=== PATIENT | male | born 1940 | race Caucasian/White ===

== ENCOUNTER → 2021-04-15 | Outpatient (CLI) | payer MEDICARE ==
[2021-04-15 11:26] LABS: HEMOGLOBIN 12.3 gm/dl (14.0-17.5); RED BLOOD COUNT 4.44 M/UL (4.20-5.50); WHITE BLOOD COUNT 3.9 K/UL (4.5-11.0)
[2021-04-15 11:58] LABS: BUN/CREATININE RATIO 20 (0-10)
== END ==
LOC: LAB 10:51
PROVIDERS: Surgery
DX: K40.90 Unilateral inguinal hernia, without obstruction or gangrene, not specified as recurrent (principal); R91.8 Other nonspecific abnormal finding of lung field
CPT/HCPCS: 36415; 71046; 80048; 85025; 93005

== ENCOUNTER → 2021-05-03 | Outpatient (CLI) | payer MEDICARE | LOC: RT 15:04 | DX: K40.90 Unilateral inguinal hernia, without obstruction or gangrene, not specified as recurrent (principal); Z20.822 Contact with and (suspected) exposure to COVID-19 | CPT/HCPCS: 93005; U0003 ==

== ENCOUNTER → 2021-05-30 | Outpatient (CLI) | payer MEDICARE | LOC: RAD 11:41 | DX: R41.82 Altered mental status, unspecified (principal); R91.8 Other nonspecific abnormal finding of lung field | CPT/HCPCS: 71046 ==

== ENCOUNTER 2021-08-11 10:15 | Inpatient (IN) | payer MEDICARE, MEDICAID ==
[~2021-08-11] VITALS: Ht 182.9 cm; Wt 68.0 kg
[2021-08-11] MEDS ORDERED: MEGESTROL400 MG/11 PO (11:26)
[2021-08-11] MEDS ORDERED: MECLIZINE HCL25 MG PO (11:27)
[2021-08-11] MEDS ORDERED: FINASTERIDE5 MG PO (11:27)
[2021-08-11] MEDS ORDERED: METOPROLOL TART25 MG PO (11:27)
[2021-08-11] MEDS ORDERED: RESTORIL15 MG PO (11:27)
[2021-08-11] MEDS ORDERED: CARBIDOPA-LEVO1 EAC6 PO (11:28)
[2021-08-11] MEDS ORDERED: AMLODIPINE BES2.5 MG PO (11:28)
[2021-08-11 11:40] LABS: HEMOGLOBIN 11.7 gm/dl (14.0-17.5); RED BLOOD COUNT 4.19 M/UL (4.20-5.50); WHITE BLOOD COUNT 8.3 K/UL (4.5-11.0)
[2021-08-11 12:02] LABS: BUN/CREATININE RATIO 25 (0-10)
[2021-08-11] MEDS ORDERED: ASPIRIN EC81 MG PO (12:58)
[2021-08-11 20:45] LABS: HEMOGLOBIN 11.3 gm/dl (14.0-17.5); RED BLOOD COUNT 4.03 M/UL (4.20-5.50); WHITE BLOOD COUNT 8.4 K/UL (4.5-11.0)
[2021-08-11 21:05] LABS: BUN/CREATININE RATIO 29 (0-10)
[2021-08-12 05:01] LABS: HEMOGLOBIN 9.9 gm/dl (14.0-17.5); WHITE BLOOD COUNT 6.3 K/UL (4.5-11.0)
[2021-08-12 05:11] LABS: RED BLOOD COUNT 3.58 M/UL (4.20-5.50)
[2021-08-12 05:26] LABS: BUN/CREATININE RATIO 26 (0-10)
[2021-08-14 03:28] LABS: HEMOGLOBIN 10.3 gm/dl (14.0-17.5); RED BLOOD COUNT 3.7 M/UL (4.20-5.50)
[2021-08-14 03:57] LABS: BUN/CREATININE RATIO 23 (0-10)
[2021-08-15 02:56] LABS: HEMOGLOBIN 9.8 gm/dl (14.0-17.5); RED BLOOD COUNT 3.59 M/UL (4.20-5.50)
[2021-08-15 02:58] LABS: WHITE BLOOD COUNT 4.7 K/UL (4.5-11.0)
[2021-08-15 03:20] LABS: BUN/CREATININE RATIO 26 (0-10)
[2021-08-15] MEDS ORDERED: BRILINTA90 MG PO (14:43)
[2021-08-15] MEDS ORDERED: ISOSORBIDE MONO30 MG PO (14:46)
[2021-08-15] MEDS ORDERED: LIPITOR80 MG PO (14:50)
== END 2021-08-15 21:14 | DRG 247 ==
LOC: ER1 10:15 → CCU 11:17 → CDU 11:17 → CCU 11:38 → PROG CARE 08-13 11:21
PROVIDERS: Internal Medicine; Nurse Practitioner; ADMIT Internal Medicine Interventional Cardiology
PROC: 027034Z Dilation of Coronary Artery, One Artery with Drug-eluting Intraluminal Device, Percutaneous Approach (ICD-10-PCS; 2021-08-11)
PROC: 4A023N7 Measurement of Cardiac Sampling and Pressure, Left Heart, Percutaneous Approach (ICD-10-PCS; 2021-08-11)
PROC: B2111ZZ Fluoroscopy of Multiple Coronary Arteries using Low Osmolar Contrast (ICD-10-PCS; 2021-08-11)
PROC: B24BZZZ Ultrasonography of Heart with Aorta (ICD-10-PCS; principal; 2021-08-13)
DX: I21.09 ST elevation (STEMI) myocardial infarction involving other coronary artery of anterior wall (principal); G20 Parkinson's disease; I10 Essential (primary) hypertension; F02.80 Dementia in other diseases classified elsewhere, unspecified severity, without behavioral disturbance, psychotic disturbance, mood disturbance, and anxiety; Z20.822 Contact with and (suspected) exposure to COVID-19; E78.5 Hyperlipidemia, unspecified; I08.3 Combined rheumatic disorders of mitral, aortic and tricuspid valves; D50.9 Iron deficiency anemia, unspecified; G31.83 Neurocognitive disorder with Lewy bodies; G47.00 Insomnia, unspecified; Z79.01 Long term (current) use of anticoagulants; Z79.82 Long term (current) use of aspirin; Z82.49 Family history of ischemic heart disease and other diseases of the circulatory system; Z90.49 Acquired absence of other specified parts of digestive tract; Z98.42 Cataract extraction status, left eye; Z98.41 Cataract extraction status, right eye
CPT/HCPCS: ECHO; 0240U; 36415; 70450; 70551; 71045; 80048; 80053; 82550; 82553; 82607; 82746; 83540; 83550; 83605; 83735; 83874; 83880; 84439; 84443; 84484; 85025; 85027; 85347; 85610; 85730; 86140; 87040; 92610; 93005; 93306; 97162; 97530-GP-CQ; 99285; C9600; J0461; J1170; J1644; J2370; J3246; J7030; Q9965; U0002